=== PATIENT | female | born 1980 | race Caucasian/White ===

== ENCOUNTER 2018-03-11 20:25 | Emergency (ER) | payer MEDICAID ==
[2018-03-11] MEDS ORDERED: Ketorolac 60 MG/2 ML SDV IM ONE (20:51)
--- NOTE | 2018-03-11 21:06 | EDM.PDOC ---
ED HPI GENERAL MEDICAL PROBLEM - General Chief Complaint: Lower Extremity Injury/Pain Stated Complaint: RT FOOT PAIN Time Seen by Provider: 03/11/18 20:35 Source of Information: Reports: Patient History Limitations: Reports: No Limitations - History of Present Illness INITIAL COMMENTS - FREE TEXT/NARRATIVE: Day is a 37-year-old woman 2, Para 2000, who at 12:30 noon today on descent of the stairs experienced right ankle inversion sprain and has marked pain in her entire right fibula, lateral fibulo-calcaneal joint ligaments and right 234 mid metatarsals and prox 5th metatarsal. She was able to walk on it initially but he pain in her ankle has increased and now is unwilling to walk on her right leg andis sitting a wheelchair. She does not want any narcotic medicine for pain because it upsets her stomach IM or oral and makes her feel miserable and sick. She self administers Toradol 4-5 times a week for her migraines. Toradol works well for her migraines but her neurologist is concerned about potential side effects on her kidneys. Consequently,she does not want to have any Toradol for medication. "Tylenol does not do anything for pain." She notes,"I'm okay with no pain medicine." She is here with her girlfriend. No hx of spousal abuse. - Related Data Allergies Allergy/AdvReac Type Severity Reaction Status Date / Time No Known Allergies Allergy Verified 03/11/18 20:39 Home Meds: Home Meds . [Unable to Verify Home Med List] 03/11/18 [History] Review of Systems - Review of Systems Review Of Systems: ROS reveals no pertinent complaints other than HPI. Respiratory: Reports: Other (History of asthma) GI/Abdominal: Reports: Other (Weight) Genitourinary: Reports: No Symptoms, Other (Uterine ablation 5 years ago) Musculoskeletal: Reports: Other (History of right wrist fracture with multiple pins with ruptured ligaments.) Neurological: Reports: No Symptoms (History of excessive migraines and IM Toradol 4-5 times per week) ED EXAM, GENERAL - Physical Exam Exam: See Below Free Text/Narrative:: Slightly overweight almost a well-nourished woman in moderate pain shows her right ankle elevated on a wheelchair with ice wrapped around her ankle. Exam Limited By: No Limitations General Appearance: Alert, WD/WN, Moderate Distress Eye Exam: Bilateral Eye: Normal Inspection Nose: Normal Inspection Throat/Mouth: Normal Inspection Head: Atraumatic Neck: Normal Inspection Respiratory/Chest: No Respiratory Distress, Lungs Clear Cardiovascular: Normal Peripheral Pulses, Regular Rate, Rhythm, No Murmur Peripheral Pulses: 1+: Dorsalis Pedis (R) Rectal (Female) Exam: Deferred Back Exam: Other (deferred) Extremities: Leg Pain, Other (Entire right fibula is tender to palpation. No crepitance or deformity noted on palpation of the right fibula. Moderate fibulocalcaneal ligament pain. Minimal posterior ankle ligament pain and moderate anterior fibula talo pain pain. Marked proximal fifth metatarsal pain moderate to mid metatarsal pain with moderate swelling and tenderness of dorsal 2,3,4 metatarsal soft tissue. Minimal pain on the plantar surface of the foot. Sensation intact, ROM marked voluntary guarding and was not evaluated) Psychiatric: Normal Affect Skin Exam: Warm, Dry, Intact, Normal Color, No Rash Course - Orders/Labs/Meds Orders: Active Orders 24 hr Category Date Time Status Foot Comp Min 3V Rt [CR] Stat Exams 03/11/18 20:52 Ordered Tibia Fibula Rt [CR] Stat Exams 03/11/18 20:51 Ordered Meds: Medications Discontinued Medications Generic Name Dose Route Start Last Admin Trade Name Dada PRN Reason Stop Dose Admin Ketorolac Tromethamine 60 mg 03/11/18 20:51 Toradol IM 03/11/18 20:52 ONETIME ONE - Re-Assessments/Exams Free Text/Narrative Re-Assessment/Exam: 03/11/18 21:14 X-ray right tibia and ankle and foot: Free Text/Narrative Re-Assessment/Exam: 03/11/18 21:29 air splint applied over Gurinder bandage, ice 03/11/18 21:32 Free Text/Narrative Re-Assessment/Exam: 03/11/18 21:33 Initially she stated 4-5 years ago she "was on 20 pills and got off all his pills." For the first 20 minutes of her stay in the ED did not want a shot or oral pain medicine. But just before leaving she said changed her mind and wondered if she could get a shot of Dilaudid and something for nausea. Dilaudid 2 mg IM plus Zofran oral dissolving tablet 4 mg given the patient. She did not want to go home with pain medicines Departure - Departure Time of Disposition: 09:30 (Right ankle sprain with moderate pain right fibula right fibulocalcaneal ligament sprain right proximal fifth metatarsal pain right second through fourth mid metatarsal pain secondary to strain. She at the end of her ED stay became emotional and started crying. When asked whe she wa so tearful, she said I'm in alot of pain and I e deal with a lot of pain all the time. N hx of partner abuse.) Disposition: Home, Self-Care 01 Condition: Fair Clinical Impression: Foot pain, right Right ankle sprain Qualifiers: Encounter type: initial encounter Involved ligament of ankle: calcaneofibular ligament Qualified Code(s): S93.411A - Sprain of calcaneofibular ligament of right ankle, initial encounter - Discharge Information *PRESCRIPTION DRUG MONITORING PROGRAM REVIEWED*: Not Applicable *COPY OF PRESCRIPTION DRUG MONITORING REPORT IN PATIENT SOLOMON: Not Applicable Referrals: Jordana Armenta NP [Primary Care Provider] - - My Orders Last 24 Hours: My Active Orders 03/11/18 20:51 Tibia Fibula Rt [CR] Stat 03/11/18 20:52 Foot Comp Min 3V Rt [CR] Stat - Assessment/Plan Last 24 Hours: My Active Orders 03/11/18 20:51 Tibia Fibula Rt [CR] Stat 03/11/18 20:52 Foot Comp Min 3V Rt [CR] Stat
[2018-03-11] MEDS ORDERED: HYDROmorphone 2 MG/ML SDV IM ONE (21:35)
[2018-03-11] MEDS ORDERED: Ondansetron 4 MG Tab.DIS PO SCH (21:45)
--- NOTE | 2018-03-14 13:24 | CR ---
INDICATION: Trauma. RIGHT FOOT: Three views of the right foot were obtained 03/11/18 with no comparisons available. A fracture, dislocation, or other definite bone or joint abnormality was not identified. [facility]
--- NOTE | 2018-03-14 13:24 | CR ---
INDICATION: Trauma. RIGHT TIBIA/FIBULA: Frontal and lateral views of the right tibia and fibula revealed question of a small faintly metallic density in the soft tissues in the pretibial area of proximal third - near the juncture of the middle third - of the tibia. Soft tissue swelling may be present in that area to a mild degree , which could be on the basis of recent trauma and should be correlated clinically. A small density could be on the basis of a foreign body. It is not definitely visualized on the AP view. An underlying fracture, dislocation, or other significant bone or joint abnormality was not identified. IMPRESSION: Cannot exclude a small foreign body pretibially. MTDD
== END 2018-03-11 22:15 | disposition home or self-care (01) ==
LOC: FB.ED 20:25
DX: S93.411A Sprain of calcaneofibular ligament of right ankle, initial encounter (principal); X50.1XXA Overexertion from prolonged static or awkward postures, initial encounter
CPT/HCPCS: 73590; 73630; 96372; 99283; A9270; J1170

== ENCOUNTER 2018-03-17 14:21 | Emergency (ER) | payer MEDICAID ==
[2018-03-17] MEDS ORDERED: Ketorolac 60 MG/2 ML SDV IM ONE (15:03)
--- NOTE | 2018-03-17 15:04 | EDM.PDOC ---
ED HPI GENERAL MEDICAL PROBLEM - General Stated Complaint: HEADACHE Time Seen by Provider: 03/17/18 14:21 Source of Information: Reports: Patient History Limitations: Reports: No Limitations - History of Present Illness INITIAL COMMENTS - FREE TEXT/NARRATIVE: 37 y.i.w.f came to the ed with a friend due her "typical migraine headache", not the worst headache ever. NBP 125/77 RR 16 Pulse ox 99% on RA Pulse 87 Temp 36.7 Onset Date: 03/17/18 Onset Time: 11:00 Duration: Hour(s):, Intermittent Location: Reports: Head Quality: Reports: Ache, Burning, Dull, Same as Previous Episode Severity: Moderate Improves with: Reports: None Worsens with: Reports: Eating Context: Reports: Other (H/O migraine) Associated Symptoms: Reports: Other (nausea photophobia) - Related Data Allergies Allergy/AdvReac Type Severity Reaction Status Date / Time No Known Allergies Allergy Verified 03/17/18 18:11 Home Meds: Home Meds .Toradol 1 tab PO ASDIRECTED 03/17/18 [History] Past Medical History Respiratory History: Reports: COPD FILLER PICKER History: Reports: Endometrial Ablation, Other FILLER PICKER History: Musculoskeletal History: Reports: Fracture, Fibromyalgia, Other (See Below) Other Musculoskeletal History: right wrist Neurological History: Reports: Migraines Psychiatric History: Reports: Anxiety, Depression Endocrine/Metabolic History: Reports: Obesity/BMI 30+ - Past Surgical History Female Surgical History: Reports: Section, Oophorectomy, Other (See Below) Other Female Surgeries/Procedures: bladder surgery Social & Family History - Family History Family Medical History: Noncontributory - Caffeine Use Caffeine Use: Reports: Coffee ED ROS GENERAL - Review of Systems Review Of Systems: See Below Constitutional: Reports: No Symptoms HEENT: Reports: No Symptoms Respiratory: Reports: No Symptoms Cardiovascular: Reports: No Symptoms Endocrine: Reports: No Symptoms GI/Abdominal: Reports: No Symptoms : Reports: No Symptoms Musculoskeletal: Reports: No Symptoms Skin: Reports: No Symptoms Neurological: Reports: Headache Psychiatric: Reports: No Symptoms Hematologic/Lymphatic: Reports: No Symptoms Immunologic: Reports: No Symptoms ED EXAM,LOWER BACK PAIN/INJURY - Physical Exam Exam: See Below Exam Limited By: No Limitations General Appearance: Alert, WD/WN, Mild Distress, Moderate Distress Eye Exam: Bilateral Eye: Normal Inspection Ears: Normal External Exam Nose: Normal Inspection Throat/Mouth: Normal Inspection, Normal Voice, No Airway Compromise Head: Atraumatic, Normocephalic Neck: Normal Inspection, Supple, Non-Tender Respiratory/Chest: No Respiratory Distress Cardiovascular: Normal Peripheral Pulses GI/Abdominal: Normal Bowel Sounds (Female) Exam: Deferred Rectal (Female) Exam: Deferred Back Exam: Normal Inspection, Full Range of Motion Extremities: Normal Inspection, Normal Range of Motion, Non-Tender, No Pedal Edema Neurological: Alert, CN II-XII Intact Psychiatric: Depressed Mood Skin Exam: Warm, Dry, Intact, Normal Color Lymphatic: No Adenopathy Course - Vital Signs Text/Narrative:: 37 y.i.w.f came to the ed with a friend due her "typical migraine headache", not the worst headache ever. NBP 125/77 RR 16 Pulse ox 99% on RA Pulse 87 Temp 36.7 PE: WNWD W F having her head cover with a coat while in the ed. Imaging/labs not indicated Impression: Migraine H/A Tx: Toradol, Vistaril and Benadryl Reexam: Pain and nausea subsided 90% Plan: D/C with instructions Last Recorded V/S: Last Vital Signs Temp 36.5 C 03/17/18 14:30 Pulse 72 03/17/18 14:30 Resp 16 03/17/18 14:30 BP 125/77 03/17/18 14:30 Pulse Ox 96 03/17/18 14:30 - Orders/Labs/Meds Meds: Medications Discontinued Medications Generic Name Dose Route Start Last Admin Trade Name Dada PRBillie Reason Stop Dose Admin Diphenhydramine HCl 50 mg 03/17/18 15:10 03/17/18 15:25 Benadryl IM 03/17/18 15:11 Not Given ONETIME ONE Diphenhydramine HCl 25 mg 03/17/18 15:14 03/17/18 15:26 Benadryl IM 03/17/18 15:15 25 mg ONETIME ONE Administration Hydroxyzine HCl 50 mg 03/17/18 15:13 03/17/18 15:27 Vistaril IM 03/17/18 15:14 50 mg ONETIME ONE Administration Ketorolac Tromethamine 60 mg 03/17/18 15:03 03/17/18 15:28 Toradol IM 03/17/18 15:04 60 mg ONETIME ONE Administration Departure - Departure Time of Disposition: 15:34 Disposition: Home, Self-Care 01 Condition: Good Clinical Impression: Migraine - Discharge Information Referrals: PCP,None [Primary Care Provider] - Forms: ED Department Discharge Additional Instructions: Please cont your current meds, please f/u, come back if your symptoms get worse acutely
[2018-03-17] MEDS ORDERED: diphenhydrAMINE 50 MG/ML SDV IM ONE ×2 (15:10→15:14)
[2018-03-17] MEDS ORDERED: hydrOXYzine HCl 50 MG/ML SDV IM ONE (15:13)
== END 2018-03-17 15:41 | disposition home or self-care (01) ==
LOC: FB.ED 14:21
DX: G43.909 Migraine, unspecified, not intractable, without status migrainosus (principal); J44.9 Chronic obstructive pulmonary disease, unspecified; F17.210 Nicotine dependence, cigarettes, uncomplicated
CPT/HCPCS: 96372; 99283; J1885; J3410; J1200